=== PATIENT | female | born 1980 | race Caucasian/White ===

== ENCOUNTER 2017-01-06 09:24 | Emergency (ER) | payer MEDICAID ==
[~2017-01-06] VITALS: Ht 160 cm; Wt 65.8 kg
[2017-01-06] MEDS ORDERED: ACETAMINOPHEN ES 500 MG TABLET PO ONE (09:30)
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
[2017-01-06] MEDS ORDERED: ACETAMINOPHEN ES 500 MG TABLET ONE (09:37)
--- NOTE | 2017-01-06 09:38 | NUR ---
URINE OBTAINED AND SENT TO LAB.
--- NOTE | 2017-01-06 09:41 | NUR ---
PATIENT MEDICATED PER MD ORDERS.
--- NOTE | 2017-01-06 10:20 | NUR ---
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
[2017-01-06 11:29] VITALS: BP 118/82
--- NOTE | 2017-01-06 11:31 | NUR ---
Patient discharged to home in stable condition. Written and verbal after care instructions given. Patient verbalizes understanding of instruction.
== END 2017-01-06 11:30 | disposition home or self-care (01) ==
LOC: ER 09:25
DX: S13.4XXA Sprain of ligaments of cervical spine, initial encounter (principal); S33.5XXA Sprain of ligaments of lumbar spine, initial encounter; S70.01XA Contusion of right hip, initial encounter; S40.012A Contusion of left shoulder, initial encounter; V49.49XA Driver injured in collision with other motor vehicles in traffic accident, initial encounter; Y93.89 Activity, other specified; Y92.410 Unspecified street and highway as the place of occurrence of the external cause; Y99.9 Unspecified external cause status
CPT/HCPCS: 71020; 72040; 72100; 72170; 73030; 84703; 99284; A4606; Z7610

== ENCOUNTER 2020-07-04 18:44 | Emergency (ER) | payer MEDICAID ==
[~2020-07-04] VITALS: Ht 160 cm; Wt 59.9 kg
[2020-07-04 19:02] VITALS: BP 116/68
--- NOTE | 2020-07-04 19:20 | NUR ---
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
[2020-07-04 19:38] LABS: BILIRUBIN,URINE Negative (NEGATIVE); COLOR,URINE YELLOW (YELLOW); LEUKOCYTE ESTERASE ,URINE Small (NEGATIVE); NITRITE, URINE Negative (NEGATIVE); PROTEIN,URINE Negative (NEGATIVE); UGLUCOSE 500 MG/DL mg/dL (NEGATIVE); UROBILINOGEN,URINE 0.2 EU/dL (0.2)
[2020-07-04 19:40] LABS: BACTERIA,URINE 1+ /HPF (None Seen); SQUAMOUS EPITHELIAL CELL,UR Few /HPF (None Seen)
[2020-07-04] MEDS ORDERED: CEPH500C2 PO (19:50)
[2020-07-04] MEDS ORDERED: IBUP-1955 PO (19:50)
[2020-07-04] MEDS ORDERED: PHEN-704 PO (19:50)
[2020-07-04] MEDS ORDERED: LIDOCAINE /MPF 1% VIAL 5 ML VIAL ONE (19:54)
[2020-07-04] MEDS ORDERED: CEFTRIAXONE 1 G VIAL ONE ×2 (19:54→20:00)
[2020-07-04] MEDS: CEFTRIAXONE 1 G VIAL IM ONE (20:05)
== END 2020-07-04 20:06 | disposition home or self-care (01) ==
LOC: ER 18:46
DX: N12 Tubulo-interstitial nephritis, not specified as acute or chronic (principal); E11.9 Type 2 diabetes mellitus without complications; Z79.899 Other long term (current) drug therapy
CPT/HCPCS: 81001; 84703; 87077; 87086; 87186; 96372; 99283; J0696 ×2; J3490

== ENCOUNTER 2022-11-22 01:05 | Emergency (ER) | payer MEDICAID ==
[~2022-11-22] VITALS: Ht 157.5 cm; Wt 60.8 kg
[~2022-11-22 01:05] MED LIST: CEPH500C2 PO; IBUP-1955 PO; PHEN-704 PO
[2022-11-22 02:58] LABS: APPEARANCE,URINE TURBID (CLEAR); BILIRUBIN,URINE NEGATIVE (NEGATIVE); BLOOD, URINE NEGATIVE Ery/uL (NEGATIVE); COLOR,URINE DARK YELLOW (YELLOW); KETONES,URINE NEGATIVE (NEGATIVE); LEUKOCYTE ESTERASE ,URINE 2+ (NEGATIVE); NITRITE, URINE NEGATIVE (NEGATIVE); PREGNANCY TEST URINE QUAL NEGATIVE (NEGATIVE); PROTEIN,URINE NEGATIVE (NEGATIVE); UGLUCOSE TRACE mg/dL (NEGATIVE); UROBILINOGEN,URINE 0.2 EU/dL (0.2)
[2022-11-22 02:59] LABS: ADD URINE CULTURE YES; BACTERIA,URINE Few /HPF (None Seen); RBC,URINE 0-2 /HPF (0-2); SQUAMOUS EPITHELIAL CELL,UR Rare /HPF (None Seen); WBC,URINE 21-50 /HPF (0-3)
[2022-11-22] MEDS ORDERED: CEFTRIAXONE 1GM BAG (ER ONLY) 50 ML IV ONE (03:56)
[2022-11-22] MEDS ORDERED: CEFTRIAXONE 1 G in IV D5W 50 ML IV ONE (04:00)
[2022-11-22] MEDS ORDERED: ACETAMINOPHEN ES 500 MG TABLET ONE (04:30)
[2022-11-22] MEDS ORDERED: ACETAMINOPHEN 325 MG TABLET PO ONE (04:30)
[2022-11-22] MEDS ORDERED: CEFD300C3 PO (04:41)
[2022-11-22 05:00] VITALS: BP 111/71; TEMP 98.3; O2SAT 97
[2022-11-23] MEDS ORDERED: CEFD300C3 PO (07:34)
[2022-11-23] MEDS ORDERED: METF-440 PO (07:34)
[2022-11-25] MEDS ORDERED: NITR100C6 PO (10:56)
== END 2022-11-22 05:00 | disposition home or self-care (01) ==
LOC: ER 01:08
DX: N12 Tubulo-interstitial nephritis, not specified as acute or chronic (principal); I10 Essential (primary) hypertension; E11.9 Type 2 diabetes mellitus without complications; Z79.4 Long term (current) use of insulin; Z79.84 Long term (current) use of oral hypoglycemic drugs
CPT/HCPCS: 99284; 96365; 87086; 84703; 81001; J0696 ×2; J7060

== ENCOUNTER 2022-11-22 20:54 | Inpatient (IN) | payer MEDICAID ==
[~2022-11-22] VITALS: Ht 157.5 cm; Wt 62.1 kg
[~2022-11-22 20:54] MED LIST changes: +CEFD300C3 PO
[2022-11-22 21:57] LABS: BASOPHILS % (AUTO) 0.4 % (0.0-2.0); EOSINOPHILS # (AUTO) 0.3 K/uL (0.0-0.7); EOSINOPHILS % (AUTO) 4.8 % (0.0-6.0); HEMATOCRIT 42 % (33-45); HEMOGLOBIN 14.4 g/dL (11.5-14.8); LYMPHOCYTES % (AUTO) 14.6 % (20.0-44.0); MEAN CORPUSCULAR HEMOGLOBIN 31 PG (26.0-33.0); MEAN CORPUSCULAR HGB CONC 34 g/dl (31.0-36.0); MEAN CORPUSCULAR VOLUME 90 fL (82-100); MONOCYTES % (AUTO) 0.7 % (2.0-12.0); NEUTROPHILS # (AUTO) 5.6 K/uL (1.8-8.9); NEUTROPHILS % (AUTO) 79.5 % (43.0-81.0); PLATELET COUNT (AUTO) 286 K/uL (150-450); RED BLOOD CELL COUNT(AUTO) 4.68 MIL/uL (4.0-5.2); RED CELL DISTRIBUTION WIDTH 12.2 % (11.5-15.0)
[2022-11-22] MEDS ORDERED: KETOROLAC TROMETHAMINE INJ 30 MG/ML VIAL IV ONE (22:00)
[2022-11-22 22:11] LABS: CALCIUM, SERUM 9.3 mg/dL (8.5-10.1); CREATININE 0.9 mg/dL (0.6-1.3); POTASSIUM 3.3 mmol/L (3.5-5.1)
[2022-11-23] VITALS (7 sets, daily range): BP systolic 83–103; BP diastolic 57–71; TEMP 97.8–102.6; O2SAT 96–98
[2022-11-23] MEDS ORDERED: CEFTRIAXONE 1GM BAG (ER ONLY) 50 ML IV ONE ×2 (01:30→01:42)
[2022-11-23] MEDS ORDERED: IV NS 0.9% 1,000 ML BAG IV ONE (01:30)
[2022-11-23 02:29] LABS: ALANINE AMINOTRANSFERASE 24 U/L (12-78); ALBUMIN 2.9 g/dL (3.4-5.0); ALKALINE PHOSPHATASE 110 U/L (46-116); ASPARTATE AMINOTRANSFERASE 18 U/L (15-37); BILIRUBIN,DIRECT 0.1 mg/dL (0.0-0.2); BILIRUBIN,TOTAL 0.4 mg/dL (0.2-1.0); TOTAL PROTEIN, SERUM 6.5 g/dL (6.4-8.2)
[2022-11-23 02:33] LABS: LACTIC ACID 1.4 mmol/L (0.4-2.0)
[2022-11-23 03:04] LABS: INR 1.04 (0.91-1.10); PARTIAL THROMBOPLASTIN TIME 27.9 SEC (24.3-34.3); PROTHROMBIN TIME 10.9 SECS (9.2-11.1)
[2022-11-23] MEDS ORDERED: POTASSIUM CHLORIDE 10 MEQ TABLET.SA PO ONE (04:00)
[2022-11-23] MEDS ORDERED: ONDANSETRON HCL/PF 4 MG/2 ML VIAL IVP PRN (04:00)
[2022-11-23] MEDS ORDERED: MAGNESIUM HYDROXIDE 30 ML UDC PO PRN (04:00)
[2022-11-23] MEDS ORDERED: DEXTROSE 50%-WATER 50 ML DISP.SYRIN IV PRN (04:00)
[2022-11-23] MEDS: IV NS 0.9% 1,000 ML IV PRN ×2 (04:29→18:10)
[2022-11-23] MEDS: ACETAMINOPHEN 325 MG TABLET PO PRN ×2 (04:41→16:03)
[2022-11-23] MEDS: BLOOD SUGAR DIAGNOSTIC 1 EACH STRIP IN SCH ×4 (06:25→21:17)
[2022-11-23 06:32] LABS: BASOPHILS % (AUTO) 0.2 % (0.0-2.0); EOSINOPHILS % (AUTO) 0.1 % (0.0-6.0); HEMATOCRIT 36 % (33-45); HEMOGLOBIN 12.1 g/dL (11.5-14.8); LYMPHOCYTES # (AUTO) 0.7 K/uL (0.8-4.8); LYMPHOCYTES % (AUTO) 4.4 % (20.0-44.0); MEAN CORPUSCULAR HEMOGLOBIN 31 PG (26.0-33.0); MEAN CORPUSCULAR HGB CONC 34 g/dl (31.0-36.0); MEAN CORPUSCULAR VOLUME 90 fL (82-100); MONOCYTES # (AUTO) 0.6 K/uL (0.1-1.30); MONOCYTES % (AUTO) 4.3 % (2.0-12.0); NEUTROPHILS # (AUTO) 13.7 K/uL (1.8-8.9); PLATELET COUNT (AUTO) 264 K/uL (150-450); RED BLOOD CELL COUNT(AUTO) 3.94 MIL/uL (4.0-5.2); RED CELL DISTRIBUTION WIDTH 12.3 % (11.5-15.0); WHITE BLOOD COUNT (AUTO) 15.1 K/uL (4.3-11.0)
[2022-11-23] MEDS ORDERED: METF-440 PO (07:34)
[2022-11-23] MEDS ORDERED: CEFD300C3 PO (07:34)
[2022-11-23] MEDS: PANTOPRAZOLE 40 MG TABLET.DR PO SCH (07:39)
[2022-11-23] MEDS: ENOXAPARIN SODIUM 40 MG/0.4 ML DISP.SYRIN SQ SCH (08:17)
[2022-11-23] MEDS ORDERED: MAGNESIUM OXIDE 400 MG TABLET PO ONE (09:00)
[2022-11-23] MEDS: INSULIN REGULAR, HUMAN 100 UNIT/ML 3 ML VIAL SQ PRN ×3 (11:16→22:20)
[2022-11-23] MEDS: HYDROCODONE/APAP 5/325MG TABLET PO PRN (11:35)
[2022-11-23 13:54] LABS: PREGNANCY TEST URINE QUAL NEGATIVE (NEGATIVE)
[2022-11-24] VITALS: BP 100/70; TEMP 98.6; O2SAT 96
[2022-11-24] MEDS: CEFTRIAXONE 1 G in IV D5W 50 ML IV SCH (01:57)
[2022-11-24 04:00] VITALS: BP 96/60; TEMP 98.9; O2SAT 97
[2022-11-24] MEDS: IV NS 0.9% 1,000 ML IV PRN ×2 (06:10→21:13)
[2022-11-24] MEDS: ACETAMINOPHEN 325 MG TABLET PO PRN (06:25)
[2022-11-24] MEDS: BLOOD SUGAR DIAGNOSTIC 1 EACH STRIP IN SCH ×4 (06:33→21:29)
[2022-11-24] MEDS: INSULIN REGULAR, HUMAN 100 UNIT/ML 3 ML VIAL SQ PRN ×3 (06:34→21:30)
[2022-11-24 06:57] LABS: BASOPHILS % (AUTO) 0.3 % (0.0-2.0); EOSINOPHILS # (AUTO) 0.2 K/uL (0.0-0.7); EOSINOPHILS % (AUTO) 1.5 % (0.0-6.0); HEMATOCRIT 34 % (33-45); HEMOGLOBIN 11.6 g/dL (11.5-14.8); MEAN CORPUSCULAR HEMOGLOBIN 31 PG (26.0-33.0); MEAN CORPUSCULAR HGB CONC 34 g/dl (31.0-36.0); MEAN CORPUSCULAR VOLUME 90 fL (82-100); MONOCYTES # (AUTO) 0.8 K/uL (0.1-1.30); MONOCYTES % (AUTO) 8.2 % (2.0-12.0); NEUTROPHILS # (AUTO) 8.2 K/uL (1.8-8.9); PLATELET COUNT (AUTO) 225 K/uL (150-450); RED BLOOD CELL COUNT(AUTO) 3.77 MIL/uL (4.0-5.2); RED CELL DISTRIBUTION WIDTH 12.6 % (11.5-15.0); WHITE BLOOD COUNT (AUTO) 10.2 K/uL (4.3-11.0)
[2022-11-24 07:21] LABS: CALCIUM, SERUM 8.3 mg/dL (8.5-10.1); CREATININE 0.5 mg/dL (0.6-1.3); MAGNESIUM 2.1 mg/dL (1.8-2.4); POTASSIUM 3.2 mmol/L (3.5-5.1)
[2022-11-24 08:00] VITALS: BP 90/63; TEMP 96.9; O2SAT 96
[2022-11-24] MEDS: PANTOPRAZOLE 40 MG TABLET.DR PO SCH (08:19)
[2022-11-24] MEDS: ENOXAPARIN SODIUM 40 MG/0.4 ML DISP.SYRIN SQ SCH (08:25)
[2022-11-24] MEDS ORDERED: POTASSIUM CHLORIDE 20 MEQ TAB.PRT.SR PO ONE (12:00)
[2022-11-24] MEDS: HYDROCODONE/APAP 5/325MG TABLET PO PRN (12:07)
[2022-11-24] MEDS ORDERED: K PHOS NEUTRAL 250 MG TABLET PO ONE (17:00)
[2022-11-24 20:00] VITALS: BP 112/79; TEMP 99.9; O2SAT 97
[2022-11-25] MEDS: ACETAMINOPHEN 325 MG TABLET PO PRN ×2 (01:40→14:23)
[2022-11-25] MEDS: CEFTRIAXONE 1 G in IV D5W 50 ML IV SCH (02:01)
[2022-11-25] MEDS: BLOOD SUGAR DIAGNOSTIC 1 EACH STRIP IN SCH ×2 (06:31→11:49)
[2022-11-25] MEDS: INSULIN REGULAR, HUMAN 100 UNIT/ML 3 ML VIAL SQ PRN ×2 (06:31→11:53)
[2022-11-25 07:00] VITALS: BP 102/73; TEMP 98.2; O2SAT 97
[2022-11-25] MEDS: PANTOPRAZOLE 40 MG TABLET.DR PO SCH (08:19)
[2022-11-25] MEDS: ENOXAPARIN SODIUM 40 MG/0.4 ML DISP.SYRIN SQ SCH (08:26)
[2022-11-25] MEDS ORDERED: NITR100C6 PO (10:56)
[2022-11-25] MEDS: HYDROCODONE/APAP 5/325MG TABLET PO PRN (11:12)
[2022-11-25 12:02] VITALS: BP 116/78; TEMP 98; O2SAT 96
== END 2022-11-25 14:52 | disposition home or self-care (01) | DRG 720 ==
LOC: ER 20:56 → TELE 11-23 02:55
PROVIDERS: ADMIT Student in an Organized Health Care Education/Training Program; ATTEND Internal Medicine
DX: A41.9 Sepsis, unspecified organism (principal); E44.0 Moderate protein-calorie malnutrition; E87.1 Hypo-osmolality and hyponatremia; E11.9 Type 2 diabetes mellitus without complications; E83.42 Hypomagnesemia; E87.6 Hypokalemia; M79.10 Myalgia, unspecified site; Z79.899 Other long term (current) drug therapy; Z79.84 Long term (current) use of oral hypoglycemic drugs; Z86.19 Personal history of other infectious and parasitic diseases; N30.00 Acute cystitis without hematuria
CPT/HCPCS: 36415; 80048-TC; 80076-TC; 82962-TC; 83605-TC; 83735-TC; 84100-TC; 84484-TC; 84703-TC; 85025-TC; 85730-TC; 87040-TC; 87086-TC; A4223; G0378; J0696; J1650; J1815; J7030; J7060